=== PATIENT | male | born 1995 | race Caucasian/White ===

== ENCOUNTER 2024-02-01 11:03 | Emergency (ER) | payer SELFPAY ==
[2024-02-01 11:21] VITALS: BP 131/84
[2024-02-01 11:47] VITALS: BMI 32.5
[2024-02-01 12:16] LABS: % Basophils 0.6 % (0-2); % Eosinophils 2.9 % (0-6); % Immature Granulocytes 0.2 % (0-0.5); % Lymphocytes 31.4 % (20.5-51.1); % Monocytes 11.8 % (1.7-9.3); % Neutrophils 53.1 % (42.2-75.2); Absolute Eosinophils 0.2 10^3/uL (0-0.7); Absolute Lymphocytes 1.7 10^3/uL (1.2-3.4); Absolute Monocytes 0.6 10^3/uL (0.1-0.6); Absolute Neutrophils 2.9 10^3/uL (1.4-6.5); Hematocrit 43.4 % (39.0-52.0); Hemoglobin 15.1 g/dL (13.0-18.0); Mean Corp Hgb Conc. 34.8 g/dL (33.0-37.0); Mean Corpuscular Hgb 29.6 pg (27.0-31.0); Mean Corpuscular Volume 85.1 fL (80.0-94.0); Mean Platelet Volume 9.2 fL (7.4-10.4); Nucleated Red Blood Cells % 0 % (-); Platelet Count 229 10^3/uL (130-400); Red Cell Dist. Width 12.2 % (11.5-14.5); White Blood Cell Count 5.4 10^3/uL (4.8-10.8)
[2024-02-01 12:34] LABS: ALT (SGPT) 44 U/L (0-50); AST (SGOT) 36 U/L (17-59); Albumin 4.5 g/dl (3.5-5.0); Alkaline Phosphatase 59 U/L (38-126); Blood Urea Nitrogen 13 mg/dl (9-20); Calcium 9.3 mg/dl (8.4-10.2); Carbon Dioxide 27 mmol/L (22-30); Chloride 102 mmol/L (98-107); Estimated Creatinine Clearance 113 ml/min; Glucose 92 mg/dl (70-99); Lipase 42 U/L (23-300); Potassium 4.2 mmol/L (3.5-5.1); Sodium 136 mmol/L (135-145); Total Bilirubin 1.4 mg/dl (0.2-1.3); Total Protein 7.8 g/dl (6.3-8.2); eGFR > 60.00
--- NOTE | 2024-02-01 13:41 | ED.GENMED ---
History of Present Illness
General
Chief Complaint: Abdominal Symptoms
Source: patient
Exam Limitations: none
Time Seen by Provider: 02/01/24 12:57
Nursing documentation reviewed up to this point in time: agreed with
Travel History
Have you had any contact with someone who has COVID-19?: No
Do you have any symptoms of coronavirus? Fever > 100 degrees, chills, cough, shortness of breath, sore throat, loss of taste or smell, muscle aches, or headache?: No
History of Present Illness
History of Present Illness:
28-year-old male presents to the ER complaining of diarrhea for the past 5 days. He reports he has constant diarrhea multiple times all day long. He is very nauseous. Today he has abdominal discomfort and bloating. He was seen urgent care and
treated for possible parasite with Tinidazole. reports her puppy was diagnosed with Giardia 3 weeks ago.
No other sick contacts home. No fevers. No recent antibiotic use no fevers
Review of Systems
Review of Systems
Allergies reviewed?: Yes
All Other Systems: ROS reviewed and negative except as documented in HPI and ROS
Constitutional: Reports chills ([place] subjective fever several days ago)
Respiratory: Reports no symptoms
Cardiac: Reports no symptoms
ABD/GI: Reports abdominal pain, nausea and diarrhea; Denies vomiting
: Reports no symptoms
Musculoskeletal: Reports no symptoms
Skin: Reports no symptoms
Neurological: Reports no symptoms
Psychiatric: Reports no symptoms
Phy Exam
General Physical Exam
General Presentation: no apparent distress
General age: appears stated age
General Skin: warm and dry
General Habitus: normal
General Mental: alert
General Hydration: appears well hydrated
Gastrointestinal Exam
Gastrointestinal Exam: soft and other (mild non specific tenderness )
Neurological Exam
Neurological Exam: alert and oriented x3
Musculoskeletal Exam
Musculoskeletal Exam: full ROM
Skin Exam
Skin Exam: normal color and warm/dry
Psychiatric Exam
Psychiatric Exam: normal mood/affect
Course
Orders/Labs/Results
Orders:
Orders
02/01/24 12:03
Complete Blood Count/With Diff Urgent
Comprehensive Metabolic Panel Urgent
Lipase Urgent
02/01/24 12:25
C difficile Antigen & Toxins Urgent
[facility] Source: Feces/Stool
Specimen Description:
Date Specimen was Collected: 02/01/24
Time Specimen was Collected: 12:23
Giardia/Cryptosporidium Ag Urgent
[facility] Source: ST
Specimen Description:
Date Specimen was Collected: 02/01/24
Time Specimen was Collected: 12:23
Comment: Add on per Niki Quan
Stool Culture Urgent
[facility] Source: Feces/Stool
Specimen Description:
Date Specimen was Collected: 02/01/24
Time Specimen was Collected: 12:23
02/01/24 13:38
0.9% Sodium Chloride 1000 ml [Nss] 1,000 ml IV BOLUS
Dicyclomine HCl [Bentyl] 20 mg IM NOW STA
Ondansetron Injectable [Zofran] 4 mg IV NOW STA
02/01/24 13:41
CT Abd/Pel (IV only)-DH only Urgent
Comment:
Reason For Exam: abd pain/diarrhea
02/01/24 14:44
Add On - Microbiology Urgent
Tests Added?: Ova and Parasites Giardia by stool
Abnormal Lab Results
02/01/24
12:03
Monocytes % 11.8 H %
(1.7-9.3)
Total Bilirubin 1.4 H mg/dl
(0.2-1.3)
02/01/24 12:03
02/01/24 12:03
Vital Signs
Initial and Last Documented VS:
Initial Vital Signs
Temp Pulse Resp BP Pulse Ox
97.9 F 81 18 131/84 98
02/01/24 11:21 02/01/24 11:21 02/01/24 11:21 02/01/24 11:21 02/01/24 11:21
Last Documented Vital Signs
Temp Pulse Resp BP Pulse Ox
97.9 F 81 18 131/84 98
02/01/24 11:21 02/01/24 11:21 02/01/24 11:21 02/01/24 11:21 02/01/24 11:21
Civil Structural Engineer consulted with Physician
Civil Structural Engineer consulted with physician?: Yes
Name of Physician Consulted: Dr Coughlin
MDM/Problems Addressed
Differential Diagnosis Includes:
Not limited to viral syndrome, Giardia, colitis
MDM/Problems Addressed:
28-year-old male with diarrhea for the past several days his probably had Giardia he was concerned for this. No other is a contacts at home no antibiotics per patient presents awake alert no acute distress afebrile abdomen soft very minimal
nonspecific tenderness no guarding electrolytes normal white count normal other labs normal. Patient is negative for Giardia negative for C. difficile. Patient denied any episodes of diarrhea here after he gave stool specimen. He did have relief
with Bentyl will DC on Bentyl bland diet with close outpatient family doctor.
*Critical Care Note
Total Time (30-74mins, 75-104mins- exclusive of procedures): Not Applicable
ED Attending Note
-
Portions of this chart may have been created with voice recognition software.� Occasional wrong word or��sound alike� substitutions may have occurred due to the inherent limitations of voice recognition software.
Discharge Plan
Departure
Patient Disposition: Home (Routine Discharge)
Date of Disposition: 02/01/24
Time of Disposition: 16:02
Patient with high blood pressure during this ER visit?: Yes
Covid-19: Not Applicable
Discharge Problem:
Diarrhea
Instructions: Diarrhea in adolescents and adults
Prescriptions:
New
dicyclomine 20 mg tablet
20 mg PO QID PRN (Reason: cramping) Qty: 14 0RF
Referrals:
UNKNOWN,NO INTERVIEW [Family Provider] -
Activity Restrictions/Additional Instructions:
As discussed bland diet for the next several days. Stay well-hydrated. A prescription for Bentyl was sent to your pharmacy take as directed. Follow-up close with your family doctor in the next several days and return if any worsening of symptoms.
Interventions
Interventions:
*Risk Screen - Suicide Last Done: 02/01/24 11:21
*General Assessment Last Done: 02/01/24 11:21
*Neglect/Abuse Screening Last Done: 02/01/24 11:21
ED- Fall Risk Assessment Last Done: 02/01/24 11:50
*ED COVID-19 Vaccine History Last Done: 02/01/24 11:50
CN-Udnsbo-Czujhcdzfn Assessment Last Done: 02/01/24 11:51
Discharge Date and Time
Print Language: [id number]
[2024-02-01] MEDS: BENTYL 20 MG IM (13:48)
[2024-02-01] MEDS: ZOFRAN 4 MG IV (13:48)
[2024-02-01] MEDS: NSS 1000 IV (13:48)
[2024-02-01 16:12] VITALS: BP 141/73
== END 2024-02-01 16:16 | disposition home or self-care (01) ==
LOC: EMR 11:03
PROVIDERS: Emergency Medicine; EMERGENCY PHYSICIAN Emergency Medicine
DX: R19.7 Diarrhea, unspecified (principal); R03.0 Elevated blood-pressure reading, without diagnosis of hypertension
CPT/HCPCS: 99285; 96374; 96361; 96372; 74177; 80053; 83690; 85025; 87045; 87046; 87324; 87328; 87329; 87427; 87449; Q9967